=== PATIENT | female | born 1955 | race Caucasian/White ===

== ENCOUNTER → 2016-10-12 | Outpatient (CLI) | payer OTHER ==
--- NOTE | 2016-10-14 10:33 | MR ---
MRI Left Knee Without Contrast History: Left knee pain. Evaluate for meniscal tear. Technique: MRI was performed of the left knee using a 3 [employer] MRI system. Sagittal, coronal, and axia l imaging was obtained with standard imaging sequences. Findings: General: There is a moderate suprapatellar joint effusion. Subcortical bone marrow edema is seen in t he medial compartment more predominant in the medial femoral condyle and also a small amount in the l ateral compartment. No evidence for a fracture line. Ligaments and tendons: Anterior cruciate and posterior cruciate ligaments are intact and unremarkable . The medial collateral ligament is unremarkable. There is edema along the distal pes anserinus. Thin fluid collection is seen between the medial tibial plateau and distal pes anserinus and distal media l collateral ligament. There is edema between the iliotibial band and lateral femoral condyle. Fibula r collateral ligament and biceps femoris are unremarkable. Popliteus muscle and tendon are intact. Menisci and cartilage: There is abnormal signal intensity and attenuation at the meniscal root at the posterior horn medial meniscus with probable complete tear. There is also horizontal tear in the pos terior horn and body extending into the inferior articular surface and at the free edge. Cartilage si gnal abnormality and thinning are seen in the central weightbearing portion of the medial compartment . Horizontal signal abnormality is seen in the posterior horn and body of the lateral meniscus extend ing to the superior articular surface near the free edge. There is also an upper surface tear at the junction of the anterior horn and body. Cartilage signal abnormality and thinning are seen in the pos terior weightbearing portion of the lateral compartment. Extensor mechanism: Cartilage signal abnormality and thinning are seen in the patellofemoral compartm ent, more severe in the medial facet of the patella, with greater than 50% cartilage loss. Quadriceps tendon is unremarkable. Impression: 1. Complex tear of the posterior horn and body medial meniscus including complete transection near th e meniscal root. 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 2. Mildly complex nondisplaced tear of the lateral meniscus. Grade 1 and grade 2 articular cartilage disease lateral compartment. 3. Grade 2 and grade 3 articular cartilage disease patellofemoral compartment. 4. Mild strain pes anserinus. Possible bursitis. 5. Mild iliotibial band syndrome. 6. Moderate suprapatellar joint effusion.
== END ==
LOC: FIMAGING 14:33
PROVIDERS: ATTEND Orthopaedic Surgery
DX: S83.231A Complex tear of medial meniscus, current injury, right knee, initial encounter (principal); S83.271A Complex tear of lateral meniscus, current injury, right knee, initial encounter; M25.561 Pain in right knee; M77.9 Enthesopathy, unspecified; M76.31 Iliotibial band syndrome, right leg; M25.461 Effusion, right knee